=== PATIENT | female | born 1990 | race Two or more races ===

== ENCOUNTER 2020-10-21 14:50 | Emergency (ER) | payer SELFPAY ==
[~2020-10-21] VITALS: Ht 167.6 cm; Wt 85.0 kg
[2020-10-21] MEDS ORDERED: IBUPROFEN 600MG TABLET PO ONE (16:00)
[2020-10-21 16:08] LABS: BG BASE EXCESS -1.1 mmol/L (-2.0-2.0); BG CARBOXYHEMOGLOBIN 0.1 % (0.5-1.5); BG DEOXYHEMOGLOBIN 4.9 % (0.0-5.0); BG HCO3 ACT 22.4 mmol/L (22.0-26.0); BG METHEMOGLOBIN 0.3 % (0.0-1.5); BG OXYGEN SATURATION 95.1 % (92.0-98.5); BG OXYHEMOGLOBIN 94.7 % (94.0-97.0); BG PCO2 33.9 mmHg (35.0-45.0); BG PH 7.438 (7.350-7.450); BG PO2 72.5 mmHg (75.0-100.0); BG SAMPLE SITE RIGHT BRACHIAL; BG TOTAL HEMOGLOBIN 13.8 g/dL (12.0-18.0); BG VENT MODE ROOM AIR
[2020-10-21] MEDS ORDERED: BENZ-16 MT (18:17)
[2020-10-21 18:33] VITALS: BP 132/80
== END 2020-10-21 18:34 | disposition home or self-care (01) ==
LOC: ER 14:50
DX: U07.1 COVID-19 (principal)
CPT/HCPCS: 36600; 71045; 82375; 82805; 93005; 99285